=== PATIENT | male | born 1965 | race African-American/Black ===

== ENCOUNTER 2018-03-06 16:31 | Inpatient (IN) | payer BC, MEDICAID ==
[~2018-03-06] VITALS: Ht 177.8 cm; Wt 97.7 kg
[~2018-03-06 16:31] MED LIST: ASPI325T95 PO; BENA10TA4 PO; CALC0.255 PO; CALCUIM; CARV12.598 PO; DILT-9 PO; GLIP5TAB25 PO; HYDR-762 PO; MYCO500T PO; NEXUIM; PRED10TA PO; SIMV20TA PO; TACR1CAP26 PO; TAMS-14 PO; ZOLP10TA PO
[2018-03-06] MEDS ORDERED: CEFEPIME 2GM/50 ML (PMX) 50 ML IVPB STA (16:54)
[2018-03-06] MEDS ORDERED: morphine 4 MG/ML VIAL IV STA (16:54)
[2018-03-06] MEDS ORDERED: ACETAMINOPHEN 325 MG TAB PO STA (16:54)
[2018-03-06] MEDS ORDERED: ONDANSETRON 4 MG INJ IV STA (16:54)
[2018-03-06] MEDS ORDERED: SODIUM CHLORIDE 0.9% 1L BAG IV* STA (16:54)
[2018-03-06] MEDS ORDERED: VANCOMYCIN 1 GM (PMX) 250 ML IVPB ONE (17:00)
--- NOTE | 2018-03-06 17:22 | ERD ---
ER Documentation Chief Complaint Chief Complaint fevers, chills, arm and leg pain-symptoms started yesterday HPI Pleasant 52-year-old gentleman history of renal transplant currently on immunosuppressive therapy presents with approximately 24-48 hours of symptoms that include generalized malaise, myalgia, chills and fever of 103. Patient was sent from clinic. He also describes a cough with congestion that is slightly productive. No dysuria urgency or frequency. The patient is making urine. No abdominal pain nausea vomiting or diarrhea. ROS All systems reviewed and are negative except as per history of present illness. Medications Home Meds Reported Medications Tamsulosin Hcl* (Tamsulosin Hcl*) 0.4 Mg Cap.er.24h, 0.8 MG PO HS, CAP 03/06/18 Ibuprofen* (Ibuprofen*) 800 Mg Tab, 800 MG PO Q6H PRN for PAIN, TAB 03/06/18 Pravastatin Sodium* (Pravastatin Sodium*) 40 Mg Tablet, 40 MG PO HS, TAB 03/06/18 Fenofibrate, Micronized (Fenofibrate) 134 Mg Capsule, 134 MG PO DAILY, CAP 03/06/18 Carvedilol* (Carvedilol*) 25 Mg Tablet, 25 MG PO BID, #60 TAB 03/06/18 Diltiazem Hcl* (Cartia XT*) 300 Mg Cap.sr.24h, 300 MG PO DAILY, #30 CAP 03/06/18 Prednisone* (Prednisone*) 5 Mg Tab, 5 MG PO DAILY, TAB 03/06/18 Allopurinol* (Allopurinol*) 100 Mg Tablet, 100 MG PO DAILY, TAB 03/06/18 Glipizide* (Glipizide ER*) 2.5 Mg Tab.er.24, 2.5 MG PO DAILY, TAB 03/06/18 Mycophenolate Mofetil* (Cellcept*) 250 Mg Capsule, 250 MG PO BID, CAP TAKE 2TAB-QAM AND 1TAB-QPM 03/06/18 Tacrolimus* (Tacrolimus*) 1 Mg Capsule, 2 MG PO Q12, CAP 03/06/18 Aspirin* (Aspirin* EC) 81 Mg Tablet.dr, 81 MG PO DAILY, TAB 03/06/18 Clopidogrel Bisulfate* (Clopidogrel Bisulfate*) 75 Mg Tablet, 75 MG PO DAILY, #30 TAB 03/06/18 Discontinued Reported Medications Zolpidem Tartrate* (Ambien*) 10 Mg Tablet, 10 MG PO HS PRN for INSOMNIA, TAB 01/01/14 Hydrocodone Bit-Acetaminophen* ([place]*) 10-325 Mg Tablet, 1 TAB PO Q6 PRN for PAIN, TAB 01/01/14 Prednisone (Prednisone) 10 Mg Tab, 5 MG PO DAILY, TAB 01/01/14 Glipizide* (Glipizide ER*) 5 Mg/Bottle Tab.osm.24, 5 MG PO DAILY, TAB 01/01/14 Aspirin/Calcium Carbonate/Mag (Aspirin Buffered) 325 Mg Tablet, 325 MG PO DAILY, TAB 01/01/14 Calcitriol* (Rocaltrol*) 0.25 Mcg Capsule, 0.25 MCG PO MWF, CAP 01/01/14 Benazepril Hcl* (Benazepril Hcl*) 10 Mg Tablet, 10 MG PO DAILY, TAB 01/01/14 Tamsulosin Hcl* (Flomax*) 0.4 Mg Cap.er.24h, 0.8 MG PO HS, CAP 01/01/14 Tacrolimus* (Prograf*) 1 Mg Capsule, 3 MG PO Q12, CAP 01/01/14 Carvedilol* (Coreg*) 12.5 Mg Tablet, 12.5 MG PO BID, TAB 01/01/14 [Calcuim] No Conflict Check, 500 BID 01/01/14 Diltiazem Hcl (DILTIAZEM 24HR ER) 120 Mg Cap.er.24h, 300 MG PO DAILY 01/01/14 Simvastatin* (Zocor*) 20 Mg Tablet, 20 MG PO HS, TAB 01/01/14 [Nexuim] No Conflict Check, 40 DAILY 01/01/14 Mycophenolate Mofetil* (Cellcept*) 500 Mg Tablet, 500 MG PO BID, TAB 01/01/14 Allergies Allergies: Coded Allergies: No Known Allergy (Unverified , 03/06/18) PMhx/Soc History of Surgery: Yes (RENAL TRANSPLANT 18 YEARS AGO) Anesthesia Reaction: No Hx Neurological Disorder: No Hx Respiratory Disorders: No Hx Cardiac Disorders: Yes (AFIB, CAD, CHF) Hx Psychiatric Problems: Yes (DEPRESSION) Hx Miscellaneous Medical Probl: No Hx Alcohol Use: Yes (FORMER DRINKER) Hx Substance Use: No Hx Tobacco Use: No Smoking Status: [facility] Family History: No diabetes Physical Exam Vitals Vital Signs Date Temp Pulse Resp B/P (MAP) Pulse Ox O2 O2 Flow FiO2 Time Delivery Rate 03/06/18 102.5 95 24 147/86 96 Nasal 2.0 18:32 (106) Cannula 03/06/18 91 20 155/85 96 Room Air 17:43 (108) 03/06/18 Nasal 2 17:35 Cannula 03/06/18 103.0 17:13 03/06/18 103.1 105 18 134/88 100 16:55 (103) Physical Exam General: Slightly uncomfortable but no distress Head: Normocephalic, atraumatic. Eyes: Pupils equally reactive, EOM intact ENT: Moist mucous membranes Neck: Supple, no lymphadenopathy Respiratory: Scant rales at the bases but clears with coughing, no distress Cardiovascular: RRR, no murmurs, rubs, or gallops Abdominal: Soft, non-tender, non-distended, no peritoneal signs : Deferred MSK: No edema, no unilateral swelling, 5/5 strength Neurologic: Alert and oriented, moving all extremities, normal speech, no focal weakness, no cerebellar signs, no meningismus Skin: No rash Psych: Normal mood Result Diagram: 03/06/18 1702 03/06/18 1702 Results 24 hrs Laboratory Tests Test 03/06/18 17:02 03/06/18 17:05 White Blood Count 3.1 10^3/ul Red Blood Count 4.23 10^6/ul Hemoglobin 12.2 g/dl Hematocrit 38.2 % Mean Corpuscular Volume 90.3 fl Mean Corpuscular Hemoglobin 28.8 pg Mean Corpuscular Hemoglobin Concent 31.9 g/dl Red Cell Distribution Width 13.4 % Platelet Count 173 10^3/UL Mean Platelet Volume 9.2 fl Immature Granulocytes % 0.300 % Neutrophils % % Lymphocytes % % Monocytes % % Eosinophils % % Basophils % % Nucleated Red Blood Cells % 0.0 /100WBC Immature Granulocytes # 0.010 10^3/ul Neutrophils # 10^3/ul Lymphocytes # 10^3/ul Monocytes # 10^3/ul Eosinophils # 10^3/ul Basophils # 10^3/ul Nucleated Red Blood Cells # 10^3/ul Prothrombin Time 13.0 Sec Prothrombin Time Ratio 1.0 INR International Normalized Ratio 0.97 Activated Partial Thromboplast Time 29.6 Sec Urine Color YELLOW Urine Clarity CLEAR Urine pH 5.0 Urine Specific [place] 1.013 Urine Ketones NEGATIVE mg/dL Urine Nitrite NEGATIVE mg/dL Urine Bilirubin NEGATIVE mg/dL Urine Urobilinogen NEGATIVE mg/dL Urine Leukocyte Esterase NEGATIVE [place]/ul Urine Microscopic RBC 2 /HPF Urine Microscopic WBC 1 /HPF Urine Bacteria FEW /HPF Urine Hemoglobin 1+ mg/dL Urine Glucose NEGATIVE mg/dL Urine Total Protein 2+ mg/dl Sodium Level 140 mmol/L Potassium Level 4.2 mmol/L Chloride Level 108 mmol/L Carbon Dioxide Level 22 mmol/L Anion Gap 10 Blood Urea Nitrogen 32 mg/dl Creatinine 3.77 mg/dl Est Glomerular Filtrat Rate mL/min 21 mL/min Glucose Level 116 mg/dl Calcium Level 9.3 mg/dl Total Bilirubin 0.2 mg/dl Direct Bilirubin 0.00 mg/dl Indirect Bilirubin 0.2 mg/dl Aspartate Amino Transf (AST/SGOT) 21 IU/L Alanine Aminotransferase (ALT/SGPT) 17 IU/L Alkaline Phosphatase 37 IU/L Troponin I 0.031 ng/ml Total Protein 7.1 g/dl Albumin 3.9 g/dl Globulin 3.20 g/dl Albumin/Globulin Ratio 1.21 POC Venous Lactate 0.9 mmol/L Current Medications Medications Dose Sig/Jesus Start Time Status Last (Trade) Ordered Route PRN Stop Time Admin Dose Reason Admin 650 mg ONCE STAT 03/06/18 DC 03/06/18 Acetaminophen PO 16:54 17:13 (Tylenol 03/06/18 16:57 Tab) Morphine 4 mg ONCE STAT 03/06/18 DC 03/06/18 Sulfate IV 16:54 17:14 (morphine) 03/06/18 16:57 Ondansetron 4 mg ONCE STAT 03/06/18 DC 03/06/18 HCl (Zofran IV 16:54 17:13 Inj) 03/06/18 16:57 Cefepime HCl 50 ml @ ONCE STAT 03/06/18 DC 03/06/18 100 mls/hr IVPB 16:54 17:12 03/06/18 17:23 Vancomycin 250 ml @ ONCE ONCE 03/06/18 03/06/18 HCl 125 mls/hr IVPB 17:00 17:30 03/06/18 18:59 Sodium 3,060 ml BOLUS OVER 2 03/06/18 DC 03/06/18 Chloride HOURS STAT 16:54 17:14 (NS) IV* 03/06/18 16:57 Ondansetron 4 mg BRIDGE ORDER 03/06/18 HCl (Zofran PRN IV 19:00 Inj) NAUSEA AND/OR 03/07/18 18:59 VOMITING 650 mg ER BRIDGE 03/06/18 Acetaminophen PRN PO MILD 19:00 (Tylenol PAIN(1-3)OR 03/07/18 18:59 Tab) ELEVATED TEMP Procedures/MDM EKG, MONITORS, & DIAGNOSTIC IMAGING: EKG: I reviewed and interpreted a 12-lead EKG. Rhythm: Normal sinus rhythm ST Changes: No contiguous ST segment elevations T waves: No contiguous T wave inversions Impression: No evidence of acute cardiac ischemia Chest x-ray: I reviewed and interpreted a 1 view of the chest Mediastinum: No enlargement Cardiac silhouette: No cardiomegaly Airspace: Clear lung mullen bilaterally without evidence of pneumothorax Bones: No evidence of fracture LAB INTERPRETATION: * Lactic acid reassuring less than 2 * Chemistry profile shows a creatinine of 3.77, verbally stated is the patient's baseline. Lactic 0.9, normal liver function profile, negative troponin MEDICAL DECISION MAKING: The patient presents with fever, flulike symptoms in the setting of immunosuppression therapy. The patient is at risk for serious bacterial infection. Sepsis screening will be initiated. Empiric antibiotics appropriate given cough and concern for pneumonia. Also consider influenza. Empiric Tamiflu would also be appropriate given the patient's risk profile. Low threshold for hospitalization. Patient exhibits no signs or symptoms concerning for intra-abdominal process. ER COURSE: * Antipyretics provided. 30 cc/kg bolus of saline provided. Blood cultures prior to broad-spectrum antibiotics, vancomycin and cefepime provided. * Tamiflu initiated * The patient does have renal insufficiency but it appears to be consistent with his known baseline. Fluid resuscitation appropriate. Symptoms are imp roving. Temperature improving. * The patient has been treated for possible community acquired pneumonia in the setting of immunosuppression. Also consider viral process. CONSULTATION: None DISPOSITION PLAN: Accepting care team and consultations: I discussed the current laboratory data, diagnostic imaging and emergency care provided. Admitting team: Dr. Wright Admitting team indication: Insurance directed Sepsis Documentation: Patient's infectious symptoms have not stabilized and the patient is at risk of rapid decompensation. The patient will be admitted for careful hydration, antibiotic therapy, and infectious source control. SEVERE SEPSIS CRITERIA: Infectious source: Community-acquired pneumonia End organ damage indicated by: Creatinine is elevated but at baseline., No evidence of organ dysfunction SEPSIS MANAGEMENT Time of recognition of sepsis: Upon MD assessment. Time of recognition of severe sepsis: No severe sepsis at this time. Time of recognition of septic shock: No septic shock at this time. 3 HOUR BUNDLE Blood cultures x 2 before broad-spectrum antibiotics: Yes 30 ml/kg NS bolus completed Initial lactate less than 1 Repeat lactate pending repeat SEPTIC SHOCK ASSESSMENT: No lactic acid > 4.0 No persistent hypotension (SBP < 90 or 40 mmHg drop, MAP < 65) despite 30 mL/kg IV fluid bolus VOLUME REASSESSMENT FOR SEPTIC SHOCK: The patient does not meet criteria for septic shock in the emergency department at this time PERSISTENT HYPOTENSION TREATMENT: Comfort care no Central line not Required Vasopressor started not required I considered further perfusion assessment with CVP measurement, SCVO2, bedside ultrasound volume assessment, passive leg raise, trial of further fluid bolus. And proceeded with 30 ml/kg fluid bolus of NSS, broad spectrum antibiotics, and admission. CRITICAL CARE Critical care time 30 minutes Emergent fluid management while maintaining close respiratory support. Provision of immediate and broad-spectrum antibiotic therapy. Simultaneous assessment for possible sources in order to direct targeted therapy. Consid eration for invasive and chemical support to prevent cardiopulmonary collapse. Critical care time is independent of procedures performed. Departure Diagnosis: Primary Impression: Community acquired pneumonia Laterality: unspecified laterality Qualified Codes: J18.9 - Pneumonia, unspecified organism Additional Impressions: Influenza-like symptoms Chronic renal insufficiency Chronic kidney disease stage: unspecified stage Qualified Codes: N18.9 - Chronic kidney disease, unspecified Sepsis Sepsis type: sepsis due to unspecified organism Qualified Codes: A41.9 - Sepsis, unspecified organism History of renal transplant Condition: PARAM Lopez MD Mar 06, 2018 17:21
[2018-03-06] MEDS ORDERED: CLOP75TA19 PO (17:36)
[2018-03-06] MEDS ORDERED: TACR1CAP PO (17:36)
[2018-03-06] MEDS ORDERED: ASPI-817 PO (17:36)
[2018-03-06] MEDS ORDERED: MYCO250C3 PO (17:37)
[2018-03-06] MEDS ORDERED: GLIP2.5T3 PO (17:38)
[2018-03-06] MEDS ORDERED: ALLO100T PO (17:38)
[2018-03-06] MEDS ORDERED: DILT300C33 PO (17:39)
[2018-03-06] MEDS ORDERED: PRED5TAB PO (17:39)
[2018-03-06] MEDS ORDERED: FENO134C PO (17:40)
[2018-03-06] MEDS ORDERED: CARV25TA79 PO (17:40)
[2018-03-06] MEDS ORDERED: IBUP-1545 PO (17:41)
[2018-03-06] MEDS ORDERED: PRAV40TA76 PO (17:41)
[2018-03-06] MEDS ORDERED: TAMS0.4C2 PO (17:42)
[2018-03-06] MEDS ORDERED: ONDANSETRON 4 MG INJ IV PRN (19:00)
[2018-03-06] MEDS ORDERED: ACETAMINOPHEN 325 MG TAB PO PRN (19:00)
[2018-03-06 23:30] VITALS: Ht 177.8 cm; Wt 97.7 kg
[2018-03-07] MEDS ORDERED: GUAIFENESIN 20 MG/ML 5ML CUP PO PRN
[2018-03-07 00:09] VITALS: BP 160/87; PULSE 70; RESP 20
--- NOTE | 2018-03-07 00:17 | HP ---
Date/Time of Note Date/Time of Note DATE: 03/07/18 TIME: 00:17 Assessment/Plan VTE Prophylaxis Pharmacological prophylaxis: heparin Lines/Catheters IV Catheter Type (from Nrsg): Saline Lock Assessment/Plan Assessment/Plan Shortness of breath likely secondary to acute bronchitis -Transitioning IV antibiotic to oral today -Continue with duo nebs -Patient doing well however due to immunocompromised status, will monitor 1 more day in the inpatient setting History of kidney transplant -On CellCept at home, DC'd for now per nephrology Leukopenia -CellCept has been discontinued per nephrology due to worrisome low white count -It has been recommended by new accounts banking representative that patient follow-up with his outpatient new accounts banking representative as well as a muffler mechanic in order to determine if he can continue CellCept at a reasonable rate -We will need to the speak with new accounts banking representative before discharge to determine if patient will go home with no CellCept versus a lower dose Chronic kidney disease -Nephrology on board Hypertension -Continue home meds Dyslipidemia -Continue home meds BPH -Continue home meds Questionable diabetes mellitus -Insulin sliding scale as needed Result Diagram: 03/06/18 1702 03/06/18 1702 Results 24hrs Laboratory Tests Test 03/06/18 17:02 03/06/18 17:05 03/06/18 21:50 White Blood Count 3.1 L Red Blood Count 4.23 L Hemoglobin 12.2 L Hematocrit 38.2 L Mean Corpuscular Volume 90.3 Mean Corpuscular Hemoglobin 28.8 L Mean Corpuscular Hemoglobin Concent 31.9 L Red Cell Distribution Width 13.4 Platelet Count 173 Mean Platelet Volume 9.2 Immature Granulocytes % 0.300 Neutrophils % Segmented Neutrophils % (Manual) 71 Lymphocytes % Lymphocytes % (Manual) 16 Monocytes % Monocytes % (Manual) 12 H Eosinophils % Basophils % Basophils % (Manual) 1 Nucleated Red Blood Cells % 0.0 Immature Granulocytes # 0.010 Neutrophils # Lymphocytes (Manual) 0.4 L Lymphocytes # Monocytes # Monocytes # (Manual) 0.3 Eosinophils # Basophils # Basophils # (Manual) 0.0 Nucleated Red Blood Cells # Platelet Morphology Comment @See below Prothrombin Time 13.0 Prothrombin Time Ratio 1.0 INR International Normalized Ratio 0.97 Activated Partial Thromboplast Time 29.6 Urine Color YELLOW Urine Clarity CLEAR Urine pH 5.0 Urine Specific [place] 1.013 Urine Ketones NEGATIVE Urine Nitrite NEGATIVE Urine Bilirubin NEGATIVE Urine Urobilinogen NEGATIVE Urine Leukocyte Esterase NEGATIVE Urine Microscopic RBC 2 Urine Microscopic WBC 1 Urine Bacteria FEW A Urine Hemoglobin 1+ H Urine Glucose NEGATIVE Urine Total Protein 2+ H Sodium Level 140 Potassium Level 4.2 Chloride Level 108 Carbon Dioxide Level 22 Anion Gap 10 Blood Urea Nitrogen 32 H Creatinine 3.77 H Est Glomerular Filtrat Rate mL/min 21 L Glucose Level 116 Calcium Level 9.3 Total Bilirubin 0.2 Direct Bilirubin 0.00 Indirect Bilirubin 0.2 Aspartate Amino Transf (AST/SGOT) 21 Alanine Aminotransferase (ALT/SGPT) 17 Alkaline Phosphatase 37 L Troponin I 0.031 Total Protein 7.1 Albumin 3.9 Globulin 3.20 Albumin/Globulin Ratio 1.21 POC Venous Lactate 0.9 Lactic Acid Level 0.8 HPI/ROS Admit Date/Time Admit Date/Time Mar 06, 2018 at 18:44 Hx of Present Illness This is a 52-year-old male with a history of hypertension, diabetes, CAD, CHF, depression, dyslipidemia, gout renal transplant in 1997, CKD. Patient presented to ER complaining of cough, sore throat, generalized body ache. He said he was seen by his PCP and influenza was negative. He was sent to the ER for further evaluation. When he presented to ER, he was febrile with a temperature of 103. Influenza A & B were negative. Chest x-ray without acute findings. UA negative for UTI. His creatinine is 3.77, which patient states is his baseline. According to the patient, his kidney failed requiring renal transplant from uncontrolled hypertension. PMH/Family/Social Past Medical History Medical History: other (See HPI) Medications Current Medications Ondansetron HCl (Zofran Inj) 4 mg BRIDGE ORDER PRN IV NAUSEA AND/OR VOMITING; Start 03/06/18 at 19:00; Stop 03/07/18 at 18:59 Acetaminophen (Tylenol Tab) 650 mg ER BRIDGE PRN PO MILD PAIN(1-3)OR ELEVATED TEMP Last administered on 03/06/18at 22:57; Admin Dose 650 MG; Start 03/06/18 at 19:00; Stop 03/07/18 at 18:59 Guaifenesin (Robitussin Liquid Cup) 200 mg Q4H PRN PO COUGH Last administered on 03/07/18at 00:08; Admin Dose 200 MG; Start 03/07/18 at 00:00 Mycophenolate Mofetil (Cellcept) 250 mg BID PO ; Start 03/07/18 at 00:00 Tamsulosin HCl (Flomax) 0.8 mg HS PO ; Start 03/07/18 at 21:00 Tacrolimus (Prograf) 2 mg Q12 PO ; Start 03/07/18 at 00:30 IV Flush (NS 3 ml) 3 ml PER PROTOCOL IV ; Start 03/07/18 at 00:30; Status UNV Ondansetron HCl (Zofran Inj) 4 mg Q6H PRN IV NAUSEA AND/OR VOMITING; Start 03/07/18 at 00:30; Status UNV Acetaminophen (Tylenol Tab) 650 mg Q6H PRN PO PAIN LEVEL 1-3 OR FEVER; Start 03/07/18 at 00:30; Status UNV Acetaminophen/ Hydrocodone Bitart (Pep (5/325)) 1 tab Q6H PRN PO PAIN LEVEL 4-6; Start 03/07/18 at 00:30; Status UNV Allopurinol (Zyloprim) 100 mg DAILY PO ; Start 03/07/18 at 09:00; Status UNV Aspirin (Halfprin) 81 mg DAILY PO ; Start 03/07/18 at 09:00; Status UNV Carvedilol (Coreg) 25 mg BID PO ; Start 03/07/18 at 09:00; Status UNV Clopidogrel Bisulfate (plaVIX) 75 mg DAILY PO ; Start 03/07/18 at 09:00; Status UNV Diltiazem HCl (Cardizem Cd) 300 mg DAILY PO ; Start 03/07/18 at 09:00; Status UNV Prednisone (Prednisone) 5 mg DAILY PO ; Start 03/07/18 at 09:00; Status UNV Miscellaneous Information 134 mg DAILY PO ; Start 03/07/18 at 09:00; Status UNV Miscellaneous Information 40 mg HS PO ; Start 03/07/18 at 21:00; Status UNV Coded Allergies: No Known Allergy (Unverified , 03/06/18) Past Surgical History Past Surgical Hx: other (See HPI) Family History Significant Family History: no pertinent family hx Social History Alcohol Use: none Smoking Status: Unknown if ever smoked Drug Use: none Exam/Review of Systems Vital Signs Vitals Vital Signs Date Temp Pulse Resp B/P (MAP) Pulse Ox O2 O2 Flow FiO2 Time Delivery Rate 03/07/18 101.7 70 20 160/87 98 00:09 (111) 03/06/18 Room Air 22:59 Nasal Cannula 03/06/18 2.0 19:13 Exam Constitutional: other (No acute distress, but was having dry cough intermittently) Head: normocephalic, atraumatic Eyes: EOMI, PERRL Respiratory: clear to auscultation, normal air movement Cardiovascular: regular rate and rhythm, nl pulses Gastrointestinal: soft, non-tender Extremities: normal pulses JACKIE VERNON MD Mar 07, 2018 00:17
[2018-03-07] MEDS ORDERED: GLUCOSE GEL 15 GRAM TUBE BUCCAL PRN (00:30)
[2018-03-07] MEDS ORDERED: DEXTROSE 50% 50 ML SYRINGE IV PRN ×2 (00:30)
[2018-03-07] MEDS ORDERED: NACL 0.9% 3 ML SYG IV SCH (00:30)
[2018-03-07] MEDS ORDERED: ONDANSETRON 4 MG INJ IV PRN (00:30)
[2018-03-07] MEDS ORDERED: GLUCAGON 1 MG INJ IM PRN (00:30)
[2018-03-07] MEDS ORDERED: GLUCOSE GEL 15 GRAM TUBE PO PRN ×2 (00:30)
[2018-03-07] MEDS ORDERED: HYDROCODONE/APAP (5/325) TAB PO PRN (00:30)
[2018-03-07] MEDS: TACROLIMUS 1 MG CAP PO SCH ×3 (00:54→20:29)
[2018-03-07] MEDS: ACCU-CHEK XX SCH (02:00)
[2018-03-07] MEDS: ACETAMINOPHEN 325 MG TAB PO PRN (02:31)
[2018-03-07] MEDS ORDERED: CEPASTAT LOZENGE MT PRN (07:00)
[2018-03-07 07:07] VITALS: BP 152/78; PULSE 76; RESP 20
[2018-03-07] MEDS: INSULIN ASPART [NOVOLOG] 3 ML PEN SC SCH ×4 (07:49→20:44)
[2018-03-07] MEDS: CLOPIDOGREL 75 MG TAB PO SCH (08:42)
[2018-03-07] MEDS: ALLOPURINOL 100 MG TAB PO SCH (08:43)
[2018-03-07] MEDS: predniSONE 5 MG TAB PO SCH (08:43)
[2018-03-07] MEDS: DILTIAZEM (CD) 300 MG CAP PO SCH (08:43)
[2018-03-07] MEDS: ASPIRIN (EC) 81 MG TAB PO SCH (08:43)
[2018-03-07] MEDS ORDERED: MYCOPHENOLATE 250 MG CAP PO SCH ×4 (09:00→21:00)
[2018-03-07] MEDS ORDERED: TACROLIMUS 1 MG CAP PO SCH (09:00)
[2018-03-07] MEDS ORDERED: NON-FORMULARY/PATIENT OWN MED (Fenofibrate, Micronized (Fenofibrate) 134 MG) PO SCH (09:00)
[2018-03-07] MEDS ORDERED: MAGNESIUM SULFATE 2 GM/50 ML 50 ML IVPB ONE (10:00)
--- NOTE | 2018-03-07 10:58 | CONS ---
DATE OF ADMISSION: 03/06/2018 DATE OF CONSULTATION: TYPE OF CONSULTATION: Renal. Thank you, Dr. Miller, for asking me to participate in medical management of this patient. REASON FOR CONSULTATION: Chronic kidney disease and history of cadaveric kidney transplant. HISTORY OF PRESENT ILLNESS: This 52-year-old man was admitted yesterday because of cough, fever, muscle aches, nausea. He was thought to have a viral infection. He had tests for influenza A and B which were negative. His chest x-ray was clear. He has had some nausea but no vomiting. He has myalgias and some leg weakness. The patient has a history of chronic kidney disease. He said that he had uncontrolled hypertension with subsequent kidney disease and then kidney failure. He required hemodialysis from 1994 to 1997. He was able to have cadaveric kidney transplant done at [facility]. The patient says that his serum creatinine recently runs about 3.7. His serum creatinine yesterday on admission was 3.77. Today it is 3.35. The patient takes immunosuppressive medication. He is seen by a solar field service technician in [place], but he does not know his name. PAST MEDICAL HISTORY: Remarkable for hypertension, coronary artery disease, chronic kidney disease, kidney transplant, atrial fibrillation, history of congestive heart failure, depression. SOCIAL HISTORY: He is a smoker and smokes every day. He was a former alcohol drinker. CURRENT MEDICATIONS: Include the followin. Tamsulosin 0.4 mg a day. 2. Ibuprofen 800 mg q. 6 hours for pain. 3. Pravastatin 40 mg a day. 4. Fenofibrate 134 mg a day. 5. Carvedilol 25 mg twice a day. 6. Diltiazem 300 mg a day. 7. Prednisone 5 mg a day. 8. Allopurinol 100 mg a day. 9. Glipizide 2.5 mg a day. 10. CellCept 500 mg in the morning and 250 at night. 11. Tacrolimus 2 mg q.12h. 12. Aspirin 81 mg a day. 13. Plavix 75 mg a day. 14. Ambien 10 mg at bedtime. PHYSICAL EXAMINATION: GENERAL: At this time reveals a well-developed man in no apparent distress. VITAL SIGNS: Temperature 100.2, pulse is 76, respirations 20, blood pressure 152/78, O2 saturation 94% on room air. HEENT: Head normocephalic. Eyes: Extraocular muscles intact. NOSE AND MOUTH: Normal. NECK: Supple. No neck vein distention. LUNGS: Clear to auscultation. HEART: Regular rhythm. No murmurs, gallops or rubs. ABDOMEN: Soft, nontender, no masses or megaly. EXTREMITIES: No peripheral edema. He does have a right forearm AV fistula which has a good thrill over the vein. LABORATORY DATA: Today sodium 137, potassium 4.1, chloride 107, CO2 21, BUN 29, creatinine 3.35, glucose of 101, magnesium 1.3. White blood count 2500, hemoglobin 11.6, hematocrit 36.1. Urinalysis negative leukocyte esterase, 2+ protein. IMPRESSION: 1. Chronic kidney disease. He had a Kidney transplant in 1997 . Prior to that he was on dialysis for 3 years. He had kidney disease due to HTN . He is followed by a solar field service technician in [place]. The patient says that his baseline serum creatinine is around 3.7. This is about what his serum creatinine is now. I would continue his current immunosuppressive medication for now. I am concerned about leukopenia. I suspect that he has some component of chronic transplant nephropathy and this is the cause of his current decreased renal function. 2. Leukopenia. This could be due to CellCept and his dose may need to be adjusted down. I did discuss this with the patient. 3. Proteinuria. 4. Febrile illness. Probably some viral illness. His chest x-ray does not show pneumonia. Influenza seems to be ruled out. 5. Hypertension. PLAN: 1. I will order ultrasound of transplanted kidney. 2. Monitor renal function and other laboratory tests including white blood count. 3. Check urine protein creatinine ratio. 4. I will follow the patient along with you. Dictated By: PARAM KING MD, ND/BECKY Conf#: [id number] DID#: [id number] CC: PADMINI SR MD; JACKIE VERNON MD;*EndCC* MTDD
[2018-03-07] MEDS: FENOFIBRATE 145 MG TAB PO SCH (11:11)
[2018-03-07] MEDS: MYCOPHENOLATE 250 MG CAP PO SCH (11:11)
[2018-03-07 11:46] VITALS: BP 135/65; PULSE 74; RESP 20
[2018-03-07 15:29] VITALS: BP 139/82; PULSE 68; RESP 20
--- NOTE | 2018-03-07 15:46 | PN ---
Date/Time of Note Date/Time of Note DATE: 03/07/18 TIME: 15:38 Assessment/Plan VTE Prophylaxis Risk score (from Ns)>0 risk: 1 SCD applied (from Ns): Yes Pharmacological prophylaxis: NA/contraindicated Pharm contraindication: low risk/ambulating Lines/Catheters IV [facility] (from [facility] Saline Lock Urinary Cath still in place: No Assessment/Plan Assessment/Plan 1. Acute bronchitis, rocephin and zithromax 2. s/p kidney transplant, on cellcept, prograft and prednisone 3. CKD, follow up with nephrology 4. DM by history, HbA1c 5.8, diet control 5. HTN, controlled 6. ?CAD, states he had LHC but no coronary artery disease 7. CHF, stable 8. Dyslipidemia, on lipitor and tricor 9. BPH, on flomax 10. DVT prophylaxis: SCDs Result Diagram: 03/07/18 0611 03/07/18 0611 Results 24hrs Laboratory Tests Test 03/06/18 17:02 03/06/18 17:05 03/06/18 21:50 03/07/18 06:11 White Blood Count 3.1 L 2.5 L Red Blood Count 4.23 L 3.96 L Hemoglobin 12.2 L 11.6 L Hematocrit 38.2 L 36.1 L Mean Corpuscular 90.3 91.2 Volume Mean Corpuscular 28.8 L 29.3 Hemoglobin Mean Corpuscular 31.9 L 32.1 Hemoglobin Concent Red Cell 13.4 13.6 Distribution Width Platelet Count 173 139 L Mean Platelet Volume 9.2 9.1 Immature 0.300 0.000 L Granulocytes % Neutrophils % 53.1 Segmented 71 Neutrophils % (Manual) Lymphocytes % 30.2 Lymphocytes % 16 (Manual) Monocytes % 15.1 H Monocytes % (Manual) 12 H Eosinophils % 1.2 Basophils % 0.4 Basophils % (Manual) 1 Nucleated Red Blood 0.0 0.0 Cells % Immature 0.010 0.000 Granulocytes # Neutrophils # 1.3 L Lymphocytes (Manual) 0.4 L Lymphocytes # 0.7 L Monocytes # 0.4 Monocytes # (Manual) 0.3 Eosinophils # 0.0 Basophils # 0.0 Basophils # (Manual) 0.0 Nucleated Red Blood 0.0 Cells # Platelet Morphology @See below Comment Prothrombin Time 13.0 Prothrombin Time 1.0 Ratio INR International 0.97 Normalized Ratio Activated 29.6 Partial Thromboplast Time Urine Color YELLOW Urine Clarity CLEAR Urine pH 5.0 Urine Specific 1.013 [place] Urine Ketones NEGATIVE Urine Nitrite NEGATIVE Urine Bilirubin NEGATIVE Urine Urobilinogen NEGATIVE Urine Leukocyte NEGATIVE Esterase Urine Microscopic 2 RBC Urine Microscopic 1 WBC Urine Bacteria FEW A Urine Hemoglobin 1+ H Urine Glucose NEGATIVE Urine Total Protein 2+ H Sodium Level 140 137 Potassium Level 4.2 4.1 Chloride Level 108 107 Carbon Dioxide Level 22 21 Anion Gap 10 9 Blood Urea Nitrogen 32 H 29 H Creatinine 3.77 H 3.35 H Est Glomerular 21 L 24 L Filtrat Rate mL/min Glucose Level 116 101 Calcium Level 9.3 8.7 Total Bilirubin 0.2 0.2 Direct Bilirubin 0.00 0.00 Indirect Bilirubin 0.2 0.2 Aspartate Amino 21 21 Transf (AST/SGOT) Alanine 17 16 Aminotransferase (AL T/SGPT) Alkaline Phosphatase 37 L 31 L Troponin I 0.031 Total Protein 7.1 6.4 Albumin 3.9 3.5 Globulin 3.20 2.90 Albumin/Globulin 1.21 1.20 Ratio POC Venous Lactate 0.9 Lactic Acid Level 0.8 Hemoglobin A1c 5.8 Magnesium Level 1.3 L Triglycerides Level 101 Cholesterol Level 102 LDL Cholesterol, 45 Calculated HDL Cholesterol 37 Cholesterol/HDL 2.7 Ratio Test 03/07/18 07:47 03/07/18 12:01 Bedside Glucose 103 138 Subjective 24 Hr Interval Summary Free Text/Dictation still cough, no sputum Exam/Review of Systems Vital Signs Vitals Vital Signs Date Temp Pulse Resp B/P (MAP) Pulse Ox O2 O2 Flow FiO2 Time Delivery Rate 03/07/18 99.5 68 20 139/82 97 Room Air 15:29 (101) 03/06/18 2.0 19:13 Intake and Output 03/06/18 03/06/18 03/07/18 1515:00 23:00 07:00 IntakeIntake Total 800 ml BalanceBalance 800 ml Exam Constitutional: alert, oriented, well developed Psych: no complaints, nl mood/affect Head: normocephalic, atraumatic Eyes: nl conjunctiva, EOMI, nl lids ENMT: nl external ears & nose, nl lips & teeth, nl nasal mucosa & septum Neck: supple, non-tender Respiratory: clear to auscultation, normal air movement; No congested cough, No crackles/rales, No diminished breath sounds, No intercostal retraction, No labored breathing, No respirations, No tactile fremitus, No wheezing, No other Cardiovascular: regular rate and rhythm, nl pulses; No bruits, No diastolic murmur, No edema, No gallop, No irregular rhythm, No jugular venous distention (JVD), No murmurs/extra sounds, No rub, No systolic murmur, No S3, No S4, No other Gastrointestinal: soft, nl liver, spleen, non-tender Musculoskeletal: nl extremities to inspection, nl gait and stance; No joint tenderness, No muscle tone, No muscle weakness, No range of motion, No spine non-tender, No swelling, No other Extremities: normal pulses; No calf tenderness, No cyanosis, No clubbing, No edema, No pitting pedal edema, No palpable cord, No tenderness, No other Neurological: MARKETING LIAISON II-XII intact, nl mental status, nl speech, nl strength Medications Medications Current Medications Guaifenesin (Robitussin Liquid Cup) 200 mg Q4H PRN PO COUGH Last administered on 03/07/18at 00:08; Admin Dose 200 MG; Start 03/07/18 at 00:00 Tamsulosin HCl (Flomax) 0.8 mg HS PO ; Start 03/07/18 at 21:00 Tacrolimus (Prograf) 2 mg Q12 PO Last administered on 03/07/18at 11:10; Admin Dose 2 MG; Start 03/07/18 at 00:30 IV Flush (NS 3 ml) 3 ml PER PROTOCOL IV ; Start 03/07/18 at 00:30 Ondansetron HCl (Zofran Inj) 4 mg Q6H PRN IV NAUSEA AND/OR VOMITING; Start 03/07/18 at 00:30 Acetaminophen (Tylenol Tab) 650 mg Q6H PRN PO PAIN LEVEL 1-3 OR FEVER Last administered on 03/07/18at 02:31; Admin Dose 650 MG; Start 03/07/18 at 00:30 Acetaminophen/ Hydrocodone Bitart ([place] (5/325)) 1 tab Q6H PRN PO PAIN LEVEL 4-6 Last administered on 03/07/18at 07:25; Admin Dose 1 TAB; Start 03/07/18 at 00:30 Allopurinol (Zyloprim) 100 mg DAILY PO Last administered on 03/07/18at 08:43; Admin Dose 100 MG; Start 03/07/18 at 09:00 Aspirin (Halfprin) 81 mg DAILY PO Last administered on 03/07/18at 08:43; Admin Dose 81 MG; Start 03/07/18 at 09:00 Carvedilol (Coreg) 25 mg BID PO Last administered on 03/07/18at 08:41; Admin Dose 25 MG; Start 03/07/18 at 09:00 Clopidogrel Bisulfate (plaVIX) 75 mg DAILY PO Last administered on 03/07/18at 08:42; Admin Dose 75 MG; Start 03/07/18 at 09:00 Diltiazem HCl (Cardizem Cd) 300 mg DAILY PO Last administered on 03/07/18at 08:43; Admin Dose 300 MG; Start 03/07/18 at 09:00 Prednisone (Prednisone) 5 mg DAILY PO Last administered on 03/07/18at 08:43; Admin Dose 5 MG; Start 03/07/18 at 09:00 Diagnostic Test (Pha) (Accu-Chek) 1 ea 02 XX ; Start 03/07/18 at 02:00 Insulin Aspart (Novolog Insulin Pen) NOVOLOG *MILD* ALGORITHM WITH MEALS BEDTIME SC ; Start 03/07/18 at 07:55 Miscellaneous Information 1 ea NOTE XX ; Start 03/07/18 at 00:30 Glucose (Glutose) 15 gm Q15M PRN PO DECREASED GLUCOSE; Start 03/07/18 at 00:30 Glucose (Glutose) 22.5 gm Q15M PRN PO DECREASED GLUCOSE; Start 03/07/18 at 0 0:30 Dextrose (D50w Syringe) 25 ml Q15M PRN IV DECREASED GLUCOSE; Start 03/07/18 at 00:30 Dextrose (D50w Syringe) 50 ml Q15M PRN IV DECREASED GLUCOSE; Start 03/07/18 at 00:30 Glucagon (Glucagen) 1 mg Q15M PRN IM DECREASED GLUCOSE; Start 03/07/18 at 00:30 Glucose (Glutose) 15 gm Q15M PRN BUCCAL DECREASED GLUCOSE; Start 03/07/18 at 00:30 Influenza Virus Vaccine Quadrival (Fluzone) 0.5 ml ONCE ONCE IM* ; Start 03/08/18 at 10:00; Stop 03/08/18 at 10:01 Phenol (Cepastat Lozenge) 1 lozenge Q1H PRN MT throat pain; Start 03/07/18 at 07:00 Mycophenolate Mofetil (Cellcept) 250 mg QHS PO ; Start 03/07/18 at 21:00 Atorvastatin Calcium (Lipitor) 10 mg DAILY@21 PO ; Start 03/07/18 at 21:00 Fenofibrate (Tricor) 145 mg DAILY PO Last administered on 03/07/18at 11:11; Admin Dose 145 MG; Start 03/07/18 at 11:00 Mycophenolate Mofetil (Cellcept) 500 mg QAM PO Last administered on 03/07/18at 11:11; Admin Dose 500 MG; Start 03/07/18 at 11:30 PADMINI SR MD Mar 07, 2018 15:46
[2018-03-07] MEDS ORDERED: AZITHROMYCIN 500MG/NS (PMX) 250 ML IVPB SCH (16:00)
[2018-03-07] MEDS: CEFTRIAXONE 1 GM/50 ML (PMX) 50 ML IVPB SCH (17:02)
[2018-03-07] MEDS: AZITHROMYCIN 500MG/NS (PMX) 250 ML IVPB SCH (17:41)
[2018-03-07 20:00] VITALS: BP 128/78; PULSE 67; RESP 19
[2018-03-07] MEDS: TAMSULOSIN (SR) 0.4 MG CAP PO SCH (20:29)
[2018-03-07] MEDS: ATORVASTATIN 10 MG TAB PO SCH (20:30)
[2018-03-07] MEDS ORDERED: NON-FORMULARY/PATIENT OWN MED (Pravastatin Sodium* 40 MG) PO SCH (21:00)
[2018-03-07] MEDS ORDERED: ZOLPIDEM 5 MG TAB PO ONE (21:00)
[2018-03-08] VITALS: BP 143/79; PULSE 67; RESP 22
[2018-03-08] MEDS: ACCU-CHEK XX SCH ×2 (02:00→21:26)
[2018-03-08 04:00] VITALS: BP 144/79; PULSE 74; RESP 20
[2018-03-08 06:27] VITALS: BP 137/81; PULSE 82; RESP 18
[2018-03-08 07:53] VITALS: BP 146/77; PULSE 78; RESP 20
[2018-03-08] MEDS: INSULIN ASPART [NOVOLOG] 3 ML PEN SC SCH ×4 (08:50→21:00)
[2018-03-08] MEDS ORDERED: MYCOPHENOLATE 250 MG CAP PO SCH (09:00)
--- NOTE | 2018-03-08 09:29 | CONS ---
Date/Time of Note Date/Time of Note DATE: 03/08/18 TIME: 09:21 Assessment/Plan Assessment/Plan Hospital Course 1. 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 His renal function is improved today. 2. Leukopenia. I am concerned about his low white blood count. I suspect this could be due to myelosuppression from CellCept. He should see a final assembly worker to try and determine the cause of the leukopenia. For now I will decrease the CellCept dose. I did explain this to the patient . I told him that he should decrease his CellCept dose by not taking the 250 mg at night. He will continue the 500 mg in the morning. 3. Viral illness, not influenza. 4. Anemia 5. Hypertension 6. Hyperlipidemia 7. Coronary artery disease Result Diagram: 03/08/18 0534 03/08/18 0534 Results 24hrs Laboratory Tests Test 03/07/18 12:01 03/07/18 17:40 03/07/18 20:28 03/08/18 02:26 Bedside Glucose 138 144 182 107 Test 03/08/18 05:34 03/08/18 08:42 White Blood Count 2.6 L Red Blood Count 4.07 L Hemoglobin 11.9 L Hematocrit 36.5 L Mean Corpuscular 89.7 Volume Mean Corpuscular 29.2 Hemoglobin Mean Corpuscular 32.6 Hemoglobin Concent Red Cell 13.2 Distribution Width Platelet Count 154 Mean Platelet Volume 9.3 Immature 0.000 L Granulocytes % Neutrophils % 50.8 Lymphocytes % 33.8 Monocytes % 12.7 H Eosinophils % 2.3 Basophils % 0.4 Nucleated Red Blood 0.0 Cells % Immature 0.000 Granulocytes # Neutrophils # 1.3 L Lymphocytes # 0.9 Monocytes # 0.3 Eosinophils # 0.1 Basophils # 0.0 Nucleated Red Blood 0.0 Cells # Sodium Level 137 Potassium Level 3.8 Chloride Level 105 Carbon Dioxide Level 23 Anion Gap 9 Blood Urea Nitrogen 27 H Creatinine 3.15 H Est Glomerular 25 L Filtrat Rate mL/min Glucose Level 99 Calcium Level 8.9 Phosphorus Level 3.0 Magnesium Level 1.5 L Bedside Glucose 102 Consultation Date/Type/Reason Admit Date/Time Mar 06, 2018 at 18:44 Initial Consult Date 24 HR Interval Summary Free Text/Dictation This patient is being seen in nephrologic follow-up. He is awake. He says that he is feeling slightly better. He has less cough and less myalgias. Constitutional: improved Exam/Review of Systems Vital Signs Vitals Vital Signs Date Temp Pulse Resp B/P (MAP) Pulse Ox O2 O2 Flow FiO2 Time Delivery Rate 03/08/18 98.9 78 20 146/77 91 Room Air 07:53 (100) 03/06/18 2.0 19:13 Intake and Output 03/07/18 03/07/18 03/08/18 1515:00 23:00 07:00 IntakeIntake Total 50 ml 1800 ml OutputOutput Total 400 ml 350 ml BalanceBalance -350 ml 1450 ml Exam Constitutional: alert, oriented Respiratory: clear to auscultation, normal air movement Cardiovascular: regular rate and rhythm Gastrointestinal: soft Musculoskeletal: nl extremities to inspection Medications Medications Current Medications Guaifenesin (Robitussin Liquid Cup) 200 mg Q4H PRN PO COUGH Last administered on 03/07/18at 00:08; Admin Dose 200 MG; Start 03/07/18 at 00:00 Tamsulosin HCl (Flomax) 0.8 mg HS PO Last administered on 03/07/18at 20:29; Admin Dose 0.8 MG; Start 03/07/18 at 21:00 Tacrolimus (Prograf) 2 mg Q12 PO Last administered on 03/07/18at 20:29; Admin Dose 2 MG; Start 03/07/18 at 00:30 IV Flush (NS 3 ml) 3 ml PER PROTOCOL IV ; Start 03/07/18 at 00:30 Ondansetron HCl (Zofran Inj) 4 mg Q6H PRN IV NAUSEA AND/OR VOMITING; Start 03/07/18 at 00:30 Acetaminophen (Tylenol Tab) 650 mg Q6H PRN PO PAIN LEVEL 1-3 OR FEVER Last administered on 03/07/18at 02:31; Admin Dose 650 MG; Start 03/07/18 at 00:30 Acetaminophen/ Hydrocodone Bitart ([place] (5/325)) 1 tab Q6H PRN PO PAIN LEVEL 4-6 Last administered on 03/07/18at 07:25; Admin Dose 1 TAB; Start 03/07/18 at 00:30 Allopurinol (Zyloprim) 100 mg DAILY PO Last administered on 03/07/18at 08:43; Admin Dose 100 MG; Start 03/07/18 at 09:00 Aspirin (Halfprin) 81 mg DAILY PO Last administered on 03/07/18at 08:43; Admin Dose 81 MG; Start 03/07/18 at 09:00 Carvedilol (Coreg) 25 mg BID PO Last administered on 03/07/18at 20:30; Admin Dose 25 MG; Start 03/07/18 at 09:00 Clopidogrel Bisulfate (plaVIX) 75 mg DAILY PO Last administered on 03/07/18at 08:42; Admin Dose 75 MG; Start 03/07/18 at 09:00 Diltiazem HCl (Cardizem Cd) 300 mg DAILY PO Last administered on 03/07/18at 08:43; Admin Dose 300 MG; Start 03/07/18 at 09:00 Prednisone (Prednisone) 5 mg DAILY PO Last administered on 03/07/18at 08:43; Admin Dose 5 MG; Start 03/07/18 at 09:00 Diagnostic Test (Pha) (Accu-Chek) 1 ea 02 XX ; Start 03/07/18 at 02:00 Insulin Aspart (Novolog Insulin Pen) NOVOLOG *MILD* ALGORITHM WITH MEALS BEDTIME SC Last administered on 03/07/18at 20:44; Admin Dose 1 UNIT; Start 03/07/18 at 07:55 Miscellaneous Information 1 ea NOTE XX ; Start 03/07/18 at 00:30 Glucose (Glutose) 15 gm Q15M PRN PO DECREASED GLUCOSE; Start 03/07/18 at 00:30 Glucose (Glutose) 22.5 gm Q15M PRN PO DECREASED GLUCOSE; Start 03/07/18 at 00:30 Dextrose (D50w Syringe) 25 ml Q15M PRN IV DECREASED GLUCOSE; Start 03/07/18 at 00:30 Dextrose (D50w Syringe) 50 ml Q15M PRN IV DECREASED GLUCOSE; Start 03/07/18 at 00:30 Glucagon (Glucagen) 1 mg Q15M PRN IM DECREASED GLUCOSE; Start 03/07/18 at 00:30 Glucose (Glutose) 15 gm Q15M PRN BUCCAL DECREASED GLUCOSE; Start 03/07/18 at 00:30 Influenza Virus Vaccine Quadrival (Fluzone) 0.5 ml ONCE ONCE IM* ; Start 03/08/18 at 10:00; Stop 03/08/18 at 10:01 Phenol (Cepastat Lozenge) 1 lozenge Q1H PRN MT throat pain Last administered on 03/07/18 19:38; Admin Dose 1 LOZENGE; Start 03/07/18 at 07:00 Mycophenolate Mofetil (Cellcept) 250 mg QHS PO Last administered on 03/07/18 20:29; Admin Dose 250 MG; Start 03/07/18 at 21:00 Atorvastatin Calcium (Lipitor) 10 mg DAILY@21 PO Last administered on 03/07/18 20:30; Admin Dose 10 MG; Start 03/07/18 at 21:00 Fenofibrate (Tricor) 145 mg DAILY PO Last administered on 03/07/18 11:11; Admin Dose 145 MG; Start 03/07/18 at 11:00 Mycophenolate Mofetil (Cellcept) 500 mg QAM PO Last administered on 03/07/18 11:11; Admin Dose 500 MG; Start 03/07/18 at 11:30 Ceftriaxone Sodium 50 ml @ 100 mls/hr Q24H IVPB Last administered on 03/07/18at 17:02; Admin Dose 100 MLS/HR; Start 03/07/18 at 17:00 Azithromycin 250 ml @ 250 mls/hr Q24H IVPB Last administered on 03/07/18at 17:41; Admin Dose 250 MLS/HR; Start 03/07/18 at 17:30 PARAM KING MD Mar 08, 2018 09:29
[2018-03-08] MEDS: FENOFIBRATE 145 MG TAB PO SCH (09:59)
[2018-03-08] MEDS: predniSONE 5 MG TAB PO SCH (09:59)
[2018-03-08] MEDS: CLOPIDOGREL 75 MG TAB PO SCH (09:59)
[2018-03-08] MEDS: ASPIRIN (EC) 81 MG TAB PO SCH (09:59)
[2018-03-08] MEDS: ALLOPURINOL 100 MG TAB PO SCH (09:59)
[2018-03-08] MEDS: TACROLIMUS 1 MG CAP PO SCH ×2 (10:14→20:19)
[2018-03-08] MEDS: MYCOPHENOLATE 250 MG CAP PO SCH (10:23)
[2018-03-08] MEDS: DILTIAZEM (CD) 300 MG CAP PO SCH (10:23)
[2018-03-08 14:32] VITALS: BP 137/74; PULSE 78; RESP 18
--- NOTE | 2018-03-08 14:49 | PN ---
Date/Time of Note Date/Time of Note DATE: 03/08/18 TIME: 14:47 Assessment/Plan VTE Prophylaxis Risk score (from Ns)>0 risk: 1 SCD applied (from Ns): Yes Pharmacological prophylaxis: NA/contraindicated Pharm contraindication: low risk/ambulating Lines/Catheters IV Catheter Type (from Nrs): Saline Lock Urinary Cath still in place: No Assessment/Plan Assessment/Plan 1. Acute bronchitis, improving on rocephin and zithromax 2. s/p kidney transplant, on cellcept, prograft and prednisone 3. CKD, follow up with nephrology 4. DM by history, HbA1c 5.8, diet control 5. HTN, controlled 6. ?CAD, states he had LHC but no coronary artery disease 7. CHF, stable 8. Dyslipidemia, on lipitor and tricor 9. BPH, on flomax 10. DVT prophylaxis: SCDs 11. Hypomagnesemia, Mg Result Diagram: 03/08/18 0534 03/08/18 0534 Results 24hrs Laboratory Tests Test 03/07/18 17:40 03/07/18 20:28 03/08/18 02:26 03/08/18 05:34 Bedside Glucose 144 182 107 White Blood Count 2.6 L Red Blood Count 4.07 L Hemoglobin 11.9 L Hematocrit 36.5 L Mean Corpuscular 89.7 Volume Mean Corpuscular 29.2 Hemoglobin Mean Corpuscular 32.6 Hemoglobin Concent Red Cell 13.2 Distribution Width Platelet Count 154 Mean Platelet Volume 9.3 Immature 0.000 L Granulocytes % Neutrophils % 50.8 Lymphocytes % 33.8 Monocytes % 12.7 H Eosinophils % 2.3 Basophils % 0.4 Nucleated Red Blood 0.0 Cells % Immature 0.000 Granulocytes # Neutrophils # 1.3 L Lymphocytes # 0.9 Monocytes # 0.3 Eosinophils # 0.1 Basophils # 0.0 Nucleated Red Blood 0.0 Cells # Sodium Level 137 Potassium Level 3.8 Chloride Level 105 Carbon Dioxide Level 23 Anion Gap 9 Blood Urea Nitrogen 27 H Creatinine 3.15 H Est Glomerular 25 L Filtrat Rate mL/min Glucose Level 99 Calcium Level 8.9 Phosphorus Level 3.0 Magnesium Level 1.5 L Test 03/08/18 08:42 03/08/18 12:35 Bedside Glucose 102 140 Subjective 24 Hr Interval Summary Free Text/Dictation less cough, no sputum Exam/Review of Systems Vital Signs Vitals Vital Signs Date Temp Pulse Resp B/P (MAP) Pulse Ox O2 O2 Flow FiO2 Time Delivery Rate 03/08/18 99.2 78 18 137/74 95 Room Air 14:32 (95) 03/06/18 2.0 19:13 Intake and Output 03/07/18 03/07/18 03/08/18 1414:59 22:59 06:59 IntakeIntake Total 50 ml 1800 ml OutputOutput Total 400 ml 350 ml BalanceBalance -350 ml 1450 ml Exam Constitutional: alert, oriented, well developed Psych: no complaints, nl mood/affect Head: normocephalic, atraumatic Eyes: nl conjunctiva, EOMI, nl lids, nl sclera, PERRL ENMT: nl external ears & nose, nl lips & teeth, nl nasal mucosa & septum Neck: supple, non-tender Respiratory: crackles/rales, wheezing Cardiovascular: regular rate and rhythm, nl pulses; No bruits, No diastolic murmur, No edema, No gallop, No irregular rhythm, No jugular venous distention (JVD), No murmurs/extra sounds, No rub, No systolic murmur, No S3, No S4, No other Gastrointestinal: soft, nl liver, spleen, non-tender Musculoskeletal: nl extremities to inspection Extremities: normal pulses; No calf tenderness, No cyanosis, No clubbing, No edema, No pitting pedal edema, No palpable cord, No tenderness, No other Neurological: HUMAN RESOURCES CLERK II-XII intact, nl mental status, nl speech, nl strength Medications Medications Current Medications Guaifenesin (Robitussin Liquid Cup) 200 mg Q4H PRN PO COUGH Last administered on 03/07/18at 00:08; Admin Dose 200 MG; Start 03/07/18 at 00:00 Tamsulosin HCl (Flomax) 0.8 mg HS PO Last administered on 03/07/18at 20:29; Admin Dose 0.8 MG; Start 03/07/18 at 21:00 Tacrolimus (Prograf) 2 mg Q12 PO Last administered on 03/08/18at 10:14; Admin Dose 2 MG; Start 03/07/18 at 00:30 IV Flush (NS 3 ml) 3 ml PER PROTOCOL IV ; Start 03/07/18 at 00:30 Ondansetron HCl (Zofran Inj) 4 mg Q6H PRN IV NAUSEA AND/OR VOMITING; Start 03/07/18 at 00:30 Acetaminophen (Tylenol Tab) 650 mg Q6H PRN PO PAIN LEVEL 1-3 OR FEVER Last administered on 03/07/18at 02:31; Admin Dose 650 MG; Start 03/07/18 at 00:30 Acetaminophen/ Hydrocodone Bitart ([place] (5/325)) 1 tab Q6H PRN PO PAIN LEVEL 4-6 Last administered on 03/07/18at 07:25; Admin Dose 1 TAB; Start 03/07/18 at 00:30 Allopurinol (Zyloprim) 100 mg DAILY PO Last administered on 03/08/18 09:59; Admin Dose 100 MG; Start 03/07/18 at 09:00 Aspirin (Halfprin) 81 mg DAILY PO Last administered on 03/08/18at 09:59; Admin Dose 81 MG; Start 03/07/18 at 09:00 Carvedilol (Coreg) 25 mg BID PO Last administered on 03/08/18at 10:00; Admin Dose 25 MG; Start 03/07/18 at 09:00 Clopidogrel Bisulfate (plaVIX) 75 mg DAILY PO Last administered on 03/08/18 09:59; Admin Dose 75 MG; Start 03/07/18 at 09:00 Diltiazem HCl (Cardizem Cd) 300 mg DAILY PO Last administered on 03/08/18 10:23; Admin Dose 300 MG; Start 03/07/18 at 09:00 Prednisone (Prednisone) 5 mg DAILY PO Last administered on 03/08/18at 09:59; Admin Dose 5 MG; Start 03/07/18 at 09:00 Diagnostic Test (Pha) (Accu-Chek) 1 ea 02 XX ; Start 03/07/18 at 02:00 Insulin Aspart (Novolog Insulin Pen) NOVOLOG *MILD* ALGORITHM WITH MEALS BEDTIME SC Last administered on 03/07/18at 20:44; Admin Dose 1 UNIT; Start 02/19 09/06 at 07:55 Miscellaneous Information 1 ea NOTE XX ; Start 03/07/18 at 00:30 Glucose (Glutose) 15 gm Q15M PRN PO DECREASED GLUCOSE; Start 03/07/18 at 00:30 Glucose (Glutose) 22.5 gm Q15M PRN PO DECREASED GLUCOSE; Start 03/07/18 at 00:30 Dextrose (D50w Syringe) 25 ml Q15M PRN IV DECREASED GLUCOSE; Start 03/07/18 at 00:30 Dextrose (D50w Syringe) 50 ml Q15M PRN IV DECREASED GLUCOSE; Start 03/07/18 at 00:30 Glucagon (Glucagen) 1 mg Q15M PRN IM DECREASED GLUCOSE; Start 03/07/18 at 00:30 Glucose (Glutose) 15 gm Q15M PRN BUCCAL DECREASED GLUCOSE; Start 03/07/18 at 00:30 Phenol (Cepastat Lozenge) 1 lozenge Q1H PRN MT throat pain Last administered on 03/07/18at 19:38; Admin Dose 1 LOZENGE; Start 03/07/18 at 07:00 Atorvastatin Calcium (Lipitor) 10 mg DAILY@21 PO Last administered on 03/07/18at 20:30; Admin Dose 10 MG; Start 03/07/18 at 21:00 Fenofibrate (Tricor) 145 mg DAILY PO Last administered on 03/08/18at 09:59; Admin Dose 145 MG; Start 03/07/18 at 11:00 Mycophenolate Mofetil (Cellcept) 500 mg QAM PO Last administered on 03/08/18at 10:23; Admin Dose 500 MG; Start 03/07/18 at 11:30 Ceftriaxone Sodium 50 ml @ 100 mls/hr Q24H IVPB Last administered on 03/07/18at 17:02; Admin Dose 100 MLS/HR; Start 03/07/18 at 17:00 Azithromycin 250 ml @ 250 mls/hr Q24H IVPB Last administered on 03/07/18at 17:41; Admin Dose 250 MLS/HR; Start 03/07/18 at 17:30 Magnesium Sulfate 100 ml @ 25 mls/hr ONCE ONCE IVPB ; Start 03/08/18 at 16:00; Stop 03/08/18 at 19:59 PADMINI SR MD Mar 08, 2018 14:49
[2018-03-08] MEDS ORDERED: MAGNESIUM SULFATE 4 GM/100 ML 100 ML IVPB ONE (16:00)
[2018-03-08] MEDS: CEFTRIAXONE 1 GM/50 ML (PMX) 50 ML IVPB SCH (16:24)
[2018-03-08] MEDS: AZITHROMYCIN 500MG/NS (PMX) 250 ML IVPB SCH (17:11)
[2018-03-08] MEDS: ACETAMINOPHEN 325 MG TAB PO PRN (17:51)
[2018-03-08 19:10] VITALS: BP 134/80; PULSE 70; RESP 18
[2018-03-08] MEDS: TAMSULOSIN (SR) 0.4 MG CAP PO SCH (20:19)
[2018-03-08] MEDS: ATORVASTATIN 10 MG TAB PO SCH (20:21)
[2018-03-09 02:30] VITALS: BP 141/70; PULSE 63; RESP 18
[2018-03-09 07:29] VITALS: BP 127/70; PULSE 70; RESP 15
[2018-03-09] MEDS: INSULIN ASPART [NOVOLOG] 3 ML PEN SC SCH ×4 (07:50→20:28)
[2018-03-09] MEDS: TACROLIMUS 1 MG CAP PO SCH (08:45)
[2018-03-09] MEDS: FENOFIBRATE 145 MG TAB PO SCH (08:45)
[2018-03-09] MEDS: CLOPIDOGREL 75 MG TAB PO SCH (08:45)
[2018-03-09] MEDS: predniSONE 5 MG TAB PO SCH (08:45)
[2018-03-09] MEDS: ALLOPURINOL 100 MG TAB PO SCH (08:45)
[2018-03-09] MEDS: ASPIRIN (EC) 81 MG TAB PO SCH (08:45)
[2018-03-09] MEDS: DILTIAZEM (CD) 300 MG CAP PO SCH (08:46)
[2018-03-09] MEDS ORDERED: CEFPODOXIME 200 MG TAB PO SCH (10:00)
[2018-03-09] MEDS ORDERED: ALBUTEROL/IPRATROPIUM (NEB) 3 ML AMP HHN PRN (10:00)
--- NOTE | 2018-03-09 11:54 | PN ---
Date/Time of Note Date/Time of Note DATE: 03/09/18 TIME: 11:53 Objective Vitals Vital Signs Date Temp Pulse Resp B/P (MAP) Pulse Ox O2 O2 Flow FiO2 Time Delivery Rate 03/09/18 98.5 70 15 127/70 100 Room Air 07:29 (89) 03/06/18 2.0 19:13 Intake and Output 03/08/18 03/08/18 03/09/18 1414:59 22:59 06:59 IntakeIntake Total 400 ml 820 ml OutputOutput Total 250 ml 800 ml 450 ml BalanceBalance 150 ml 20 ml -450 ml Results Result Diagram: 03/09/1843403/09/18 043 Medications Medications Current Medications Guaifenesin (Robitussin Liquid Cup) 200 mg Q4H PRN PO COUGH Last administered on 03/07/18at 00:08; Admin Dose 200 MG; Start 03/07/18 at 00:00 Tamsulosin HCl (Flomax) 0.8 mg HS PO Last administered on 03/08/18at 20:19; Admin Dose 0.8 MG; Start 03/07/18 at 21:00 Tacrolimus (Prograf) 2 mg Q12 PO Last administered on 03/09/18at 08:45; Admin Dose 2 MG; Start 03/07/18 at 00:30 IV Flush (NS 3 ml) 3 ml PER PROTOCOL IV ; Start 03/07/18 at 00:30 Ondansetron HCl (Zofran Inj) 4 mg Q6H PRN IV NAUSEA AND/OR VOMITING Last administered on 03/08/18at 17:50; Admin Dose 4 MG; Start 03/07/18 at 00:30 Acetaminophen (Tylenol Tab) 650 mg Q6H PRN PO PAIN LEVEL 1-3 OR FEVER Last administered on 03/08/18at 17:51; Admin Dose 650 MG; Start 03/07/18 at 00:30 Acetaminophen/ Hydrocodone Bitart ([place] (5/325)) 1 tab Q6H PRN PO PAIN LEVEL 4-6 Last administered on 03/07/18at 07:25; Admin Dose 1 TAB; Start 03/07/18 at 00:30 Allopurinol (Zyloprim) 100 mg DAILY PO Last administered on 03/09/18at 08:45; Admin Dose 100 MG; Start 03/07/18 at 09:00 Aspirin (Halfprin) 81 mg DAILY PO Last administered on 03/09/18at 08:45; Admin Dose 81 MG; Start 03/07/18 at 09:00 Carvedilol (Coreg) 25 mg BID PO Last administered on 03/09/18at 08:46; Admin Dose 25 MG; Start 03/07/18 at 09:00 Clopidogrel Bisulfate (plaVIX) 75 mg DAILY PO Last administered on 03/09/18at 08:45; Admin Dose 75 MG; Start 03/07/18 at 09:00 Diltiazem HCl (Cardizem Cd) 300 mg DAILY PO Last administered on 03/09/18at 08:46; Admin Dose 300 MG; Start 03/07/18 at 09:00 Prednisone (Prednisone) 5 mg DAILY PO Last administered on 03/09/18at 08:45; Admin Dose 5 MG; Start 03/07/18 at 09:00 Diagnostic Test (Pha) (Accu-Chek) 1 ea 02 XX ; Start 03/07/18 at 02:00 Insulin Aspart (Novolog Insulin Pen) NOVOLOG *MILD* ALGORITHM WITH MEALS BEDTIME SC Last administered on 03/08/18at 18:05; Admin Dose 2 UNIT; Start 03/07/18 at 07:55 Miscellaneous Information 1 ea NOTE XX ; Start 03/07/18 at 00:30 Glucose (Glutose) 15 gm Q15M PRN PO DECREASED GLUCOSE; Start 03/07/18 at 00:30 Glucose (Glutose) 22.5 gm Q15M PRN PO DECREASED GLUCOSE; Start 03/07/18 at 00:30 Dextrose (D50w Syringe) 25 ml Q15M PRN IV DECREASED GLUCOSE; Start 03/07/18 at 00:30 Dextrose (D50w Syringe) 50 ml Q15M PRN IV DECREASED GLUCOSE; Start 03/07/18 at 00:30 Glucagon (Glucagen) 1 mg Q15M PRN IM DECREASED GLUCOSE; Start 03/07/18 at 00:30 Glucose (Glutose) 15 gm Q15M PRN BUCCAL DECREASED GLUCOSE; Start 03/07/18 at 00:30 Phenol (Cepastat Lozenge) 1 lozenge Q1H PRN MT throat pain Last administered on 03/07/18at 19:38; Admin Dose 1 LOZENGE; Start 03/07/18 at 07:00 Atorvastatin Calcium (Lipitor) 10 mg DAILY@21 PO Last administered on 03/08/18at 20:21; Admin Dose 10 MG; Start 03/07/18 at 21:00 Fenofibrate (Tricor) 145 mg DAILY PO Last administered on 03/09/18at 08:45; Admin Dose 145 MG; Start 03/07/18 at 11:00 Albuterol/ Ipratropium (Duoneb) 3 ml Q6HWA RESP THERAPY HHN ; Start 03/09/18 at 14:00 Albuterol/ Ipratropium (Duoneb) 3 ml Q2H RESP THERAPY PRN HHN shortness of breath; Start 03/09/18 at 10:00 Azithromycin (Zithromax) 500 mg DAILY@1800 PO ; Start 03/09/18 at 18:00 Cefpodoxime Proxetil (Vantin) 200 mg BID PO ; Start 03/09/18 at 10:00 VTE Prophylaxis Risk score (from Ns)>0 risk: 1 [place] [facility] [place]/Catheters IV Catheter Type: Shipman in Place: No Assessment/Plan Hospital Course Subjective Patient doing much better, shortness of breath has significantly improved Objective Physical exam General: Patient is laying in bed and answers questions appropriately Mentation: Patient is alert and oriented 4, Head: Normocephalic atraumatic Eyes: EOMI, pupils reactive to light Neck: Supple, nontender, midline Respiratory: Mild wheezing to auscultation bilaterally Cardiovascular: regular rate, no obvious murmurs Gastrointestinal: non-tender to palpation, bowel sounds heard. Neurological: Moves all extremities spontaneously Skin: No new skin lesions Assessment and plan Shortness of breath likely secondary to acute bronchitis -Transitioning IV antibiotic to oral today -Continue with duo nebs -Patient doing well however due to immunocompromised status, will monitor 1 more day in the inpatient setting History of kidney transplant -On CellCept at home, DC'd for now per nephrology Leukopenia -CellCept has been discontinued per nephrology due to worrisome low white count -It has been recommended by product introduction manager that patient follow-up with his outpatient product introduction manager as well as a field support technician in order to determine if he ca n continue CellCept at a reasonable rate -We will need to the speak with product introduction manager before discharge to determine if patient will go home with no CellCept versus a lower dose Chronic kidney disease -Nephrology on board Hypertension -Continue home meds Dyslipidemia -Continue home meds BPH -Continue home meds Questionable diabetes mellitus -Insulin sliding scale as needed Disposition -Due to patient's immune compromised status, will observe for 1 more day, transition IV antibiotic to oral antibiotic and if stable can DC tomorrow. DIA LI Mar 09, 2018 11:54
[2018-03-09] MEDS ORDERED: CEFUROXIME 250 MG TAB PO SCH (13:00)
--- NOTE | 2018-03-09 13:43 | CONS ---
Date/Time of Note Date/Time of Note DATE: 03/09/18 TIME: 13:40 Assessment/Plan Assessment/Plan Assessment/Plan 1. 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 His renal function is improved today.per pt baseline cr 3 to 3.5/ cellcept held due to persstent leucopenia. on prednsione and prograf. level pending. monitor labs 2. Leukopenia. worse. hold cellcept and monitor 3. Viral illness, not influenza.improved 4. Anemia: improved 5. Hypertension: controlled 6. Hyperlipidemia: on meds and stable 7. Coronary artery disease: no recent cp Result Diagram: 03/09/18 0435 03/09/18 0435 Results 24hrs Laboratory Tests Test 03/08/18 17:54 03/08/18 20:18 03/09/18 04:35 03/09/18 08:38 Bedside Glucose 200 166 134 White Blood Count 1.9 #L Red Blood Count 4.30 L Hemoglobin 12.3 L Hematocrit 38.2 L Mean Corpuscular 88.8 Volume Mean Corpuscular 28.6 L Hemoglobin Mean Corpuscular 32.2 Hemoglobin Concent Red Cell 12.9 Distribution Width Platelet Count 181 Mean Platelet Volume 9.1 Immature 0.500 H Granulocytes % Neutrophils % Segmented 22 L Neutrophils % (Manual) Band Neutrophils % 2 (Manual) Lymphocytes % Lymphocytes % 57 H (Manual) Reactive Lymphocytes 12 H % (Manual) Monocytes % Monocytes % (Manual) 7 Eosinophils % Basophils % Nucleated Red Blood 0.0 Cells % Immature 0.010 Granulocytes # Neutrophils # Neutrophils # 0.4 L (Manual) Band Neutrophils # 0.0 Lymphocytes (Manual) 1.0 Lymphocytes # Reactive Lymphocytes 0.2 H # Monocytes # Monocytes # (Manual) 0.1 L Eosinophils # Basophils # Nucleated Red Blood Cells # Platelet Estimate NORMAL Giant Platelets 2 H Poikilocytosis 1+ Anisocytosis 1+ Sodium Level 140 Potassium Level 3.8 Chloride Level 108 Carbon Dioxide Level 24 Anion Gap 8 Blood Urea Nitrogen 26 H Creatinine 3.20 H Est Glomerular 25 L Filtrat Rate mL/min Glucose Level 117 Calcium Level 9.5 Magnesium Level 2.5 # Test 03/09/18 12:30 Bedside Glucose 174 Consultation Date/Type/Reason Admit Date/Time Mar 06, 2018 at 18:44 Initial Consult Date 24 HR Interval Summary Free Text/Dictation feels well. states feels much better. no fever Exam/Review of Systems Vital Signs Vitals Vital Signs Date Temp Pulse Resp B/P (MAP) Pulse Ox O2 O2 Flow FiO2 Time Delivery Rate 03/09/18 98.5 70 15 127/70 100 Room Air 07:29 (89) 03/06/18 2.0 19:13 Intake and Output 03/08/18 03/08/18 03/09/18 1515:00 23:00 07:00 IntakeIntake Total 400 ml 820 ml OutputOutput Total 250 ml 800 ml 450 ml BalanceBalance 150 ml 20 ml -450 ml Exam Constitutional: alert, oriented, well developed Psych: no complaints Head: normocephalic Eyes: nl conjunctiva Neck: supple, non-tender, jvd Respiratory: clear to auscultation, diminished breath sounds Cardiovascular: regular rate and rhythm, edema Gastrointestinal: soft Medications Medications Current Medications Guaifenesin (Robitussin Liquid Cup) 200 mg Q4H PRN PO COUGH Last administered on 03/07/18at 00:08; Admin Dose 200 MG; Start 03/07/18 at 00:00 Tamsulosin HCl (Flomax) 0.8 mg HS PO Last administered on 03/08/18at 20:19; Admin Dose 0.8 MG; Start 03/07/18 at 21:00 Tacrolimus (Prograf) 2 mg Q12 PO Last administered on 03/09/18at 08:45; Admin Dose 2 MG; Start 03/07/18 at 00:30 IV Flush (NS 3 ml) 3 ml PER PROTOCOL IV ; Start 03/07/18 at 00:30 Ondansetron HCl (Zofran Inj) 4 mg Q6H PRN IV NAUSEA AND/OR VOMITING Last administered on 03/08/18at 17:50; Admin Dose 4 MG; Start 03/07/18 at 00:30 Acetaminophen (Tylenol Tab) 650 mg Q6H PRN PO PAIN LEVEL 1-3 OR FEVER Last administered on 03/08/18at 17:51; Admin Dose 650 MG; Start 03/07/18 at 00:30 Acetaminophen/ Hydrocodone Bitart ([place] (5/325)) 1 tab Q6H PRN PO PAIN LEVEL 4-6 Last administered on 03/07/18at 07:25; Admin Dose 1 TAB; Start 03/07/18 at 00:30 Allopurinol (Zyloprim) 100 mg DAILY PO Last administered on 03/09/18at 08:45; Admin Dose 100 MG; Start 03/07/18 at 09:00 Aspirin (Halfprin) 81 mg DAILY PO Last administered on 03/09/18at 08:45; Admin Dose 81 MG; Start 03/07/18 at 09:00 Carvedilol (Coreg) 25 mg BID PO Last administered on 03/09/18 08:46; Admin Dose 25 MG; Start 03/07/18 at 09:00 Clopidogrel Bisulfate (plaVIX) 75 mg DAILY PO Last administered on 03/09/18at 08:45; Admin Dose 75 MG; Start 03/07/18 at 09:00 Diltiazem HCl (Cardizem Cd) 300 mg DAILY PO Last administered on 03/09/18 08:46; Admin Dose 300 MG; Start 03/07/18 at 09:00 Prednisone (Prednisone) 5 mg DAILY PO Last administered on 03/09/18at 08:45; Admin Dose 5 MG; Start 03/07/18 at 09:00 Diagnostic Test (Pha) (Accu-Chek) 1 ea 02 XX ; Start 03/07/18 at 02:00 Insulin Aspart (Novolog Insulin Pen) NOVOLOG *MILD* ALGORITHM WITH MEALS BEDTIME SC Last administered on 03/09/18at 12:38; Admin Dose 1 UNIT; Start 03/07/18 at 07:55 Miscellaneous Information 1 ea NOTE XX ; Start 03/07/18 at 00:30 Glucose (Glutose) 15 gm Q15M PRN PO DECREASED GLUCOSE; Start 03/07/18 at 00:30 Glucose (Glutose) 22.5 gm Q15M PRN PO DECREASED GLUCOSE; Start 03/07/18 at 00:30 Dextrose (D50w Syringe) 25 ml Q15M PRN IV DECREASED GLUCOSE; Start 03/07/18 at 00:30 Dextrose (D50w Syringe) 50 ml Q15M PRN IV DECREASED GLUCOSE; Start 03/07/18 at 00:30 Glucagon (Glucagen) 1 mg Q15M PRN IM DECREASED GLUCOSE; Start 03/07/18 at 00:30 Glucose (Glutose) 15 gm Q15M PRN BUCCAL DECREASED GLUCOSE; Start 03/07/18 at 00:30 Phenol (Cepastat Lozenge) 1 lozenge Q1H PRN MT throat pain Last administered on 03/07/18at 19:38; Admin Dose 1 LOZENGE; Start 03/07/18 at 07:00 Atorvastatin Calcium (Lipitor) 10 mg DAILY@21 PO Last administered on 03/08/18at 20:21; Admin Dose 10 MG; Start 03/07/18 at 21:00 Fenofibrate (Tricor) 145 mg DAILY PO Last administered on 03/09/18at 08:45; Admin Dose 145 MG; Start 03/07/18 at 11:00 Albuterol/ Ipratropium (Duoneb) 3 ml Q6HWA RESP THERAPY HHN ; Start 03/09/18 at 14:00 Albuterol/ Ipratropium (Duoneb) 3 ml Q2H RESP THERAPY PRN HHN shortness of breath; Start 03/09/18 at 10:00 Azithromycin (Zithromax) 500 mg DAILY@1800 PO ; Start 03/09/18 at 18:00 Cefuroxime Axetil (Ceftin) 500 mg DAILY PO ; Start 03/09/18 at 14:00 JESS GRAMAJO MD Mar 09, 2018 13:43
[2018-03-09 14:34] VITALS: BP 126/70; PULSE 65; RESP 14
[2018-03-09] MEDS: ALBUTEROL/IPRATROPIUM (NEB) 3 ML AMP HHN SCH ×2 (14:52→19:45)
[2018-03-09] MEDS: CEFUROXIME 250 MG TAB PO SCH (15:55)
[2018-03-09] MEDS ORDERED: AZITHROMYCIN 250 MG TAB PO SCH (18:00)
[2018-03-09 20:00] VITALS: BP 118/62; PULSE 65; RESP 18
[2018-03-09] MEDS: ATORVASTATIN 10 MG TAB PO SCH (20:24)
[2018-03-09] MEDS: TAMSULOSIN (SR) 0.4 MG CAP PO SCH (20:24)
[2018-03-09] MEDS ORDERED: TACROLIMUS 1 MG CAP PO SCH (21:00)
[2018-03-10 02:00] VITALS: BP 138/70; PULSE 61; RESP 18
[2018-03-10] MEDS: ACCU-CHEK XX SCH (02:00)
[2018-03-10 08:28] VITALS: BP 154/88; PULSE 72; RESP 16
[2018-03-10] MEDS: ALLOPURINOL 100 MG TAB PO SCH (08:47)
[2018-03-10] MEDS: predniSONE 5 MG TAB PO SCH (08:47)
[2018-03-10] MEDS: CLOPIDOGREL 75 MG TAB PO SCH (08:47)
[2018-03-10] MEDS: CEFUROXIME 250 MG TAB PO SCH (08:47)
[2018-03-10] MEDS: ASPIRIN (EC) 81 MG TAB PO SCH (08:48)
[2018-03-10] MEDS: DILTIAZEM (CD) 300 MG CAP PO SCH (08:48)
[2018-03-10] MEDS: INSULIN ASPART [NOVOLOG] 3 ML PEN SC SCH ×2 (08:52→12:52)
[2018-03-10] MEDS ORDERED: TACROLIMUS 1 MG CAP PO SCH (09:00)
[2018-03-10] MEDS: ALBUTEROL/IPRATROPIUM (NEB) 3 ML AMP HHN SCH ×2 (09:06→14:00)
[2018-03-10] MEDS ORDERED: LEVO500T48 PO (13:35)
--- NOTE | 2018-03-10 13:36 | PDOCDIS ---
Discharge Instructions DIAGNOSIS Discharge Diagnosis Pneumonia CONDITION [id number] Patient Condition: [id number] Stable FOLLOW UP/APPOINTMENTS Follow-up Plan Take your antibiotics as prescribed Stop taking cellcept for the next 7 days until you see your kidney doctor and your blood work is checked RIK BERNAL MD Mar 10, 2018 13:36
--- NOTE | 2018-03-10 14:58 | DS ---
Date/Time of Note Date/Time of Note DATE: 03/10/18 TIME: 14:57 Discharge Summary Admission/Discharge Info Admit Date/Time Mar 06, 2018 at 18:44 Discharge Date/Time Discharge Diagnosis Pneumonia Patient Condition: Stable Hospital Course Presented with sepsis and clinical symptoms of pneumonia. He was given broad spectrum antitbiotics and symptoms improved. Cultures were negative. He was given a course of levaquin to complete as an outpatinet. HD was continued. He was advised to hold cellcept for 1 week until he sees his coater slate in clinic Home Meds Active Scripts Levofloxacin* (Levaquin*) 500 Mg Tablet, 500 MG PO Q48H for 4 Days, #3 TAB Prov:RIK BERNAL MD 03/10/18 Reported Medications Tamsulosin Hcl* (Tamsulosin Hcl*) 0.4 Mg Cap.er.24h, 0.8 MG PO HS, CAP 03/06/18 Pravastatin Sodium* (Pravastatin Sodium*) 40 Mg Tablet, 40 MG PO HS, TAB 03/06/18 Fenofibrate, Micronized (Fenofibrate) 134 Mg Capsule, 134 MG PO DAILY, CAP 03/06/18 Carvedilol* (Carvedilol*) 25 Mg Tablet, 25 MG PO BID, #60 TAB 03/06/18 Diltiazem Hcl* (Cartia XT*) 300 Mg Cap.sr.24h, 300 MG PO DAILY, #30 CAP 03/06/18 Prednisone* (Prednisone*) 5 Mg Tab, 5 MG PO DAILY, TAB 03/06/18 Allopurinol* (Allopurinol*) 100 Mg Tablet, 100 MG PO DAILY, TAB 03/06/18 Glipizide* (Glipizide ER*) 2.5 Mg Tab.er.24, 5 MG PO DAILY, TAB 03/06/18 Tacrolimus* (Tacrolimus*) 1 Mg Capsule, 2 MG PO Q12, CAP 03/06/18 Aspirin* (Aspirin* EC) 81 Mg Tablet.dr, 81 MG PO DAILY, TAB 03/06/18 Clopidogrel Bisulfate* (Clopidogrel Bisulfate*) 75 Mg Tablet, 75 MG PO DAILY, #30 TAB 03/06/18 Discontinued Reported Medications Ibuprofen* (Ibuprofen*) 800 Mg Tab, 800 MG PO Q6H PRN for PAIN, TAB 03/06/18 Mycophenolate Mofetil* (Cellcept*) 250 Mg Capsule, 250 MG PO BID, CAP TAKE 2TAB-QAM AND 1TAB-QPM 03/06/18 Zolpidem Tartrate* (Ambien*) 10 Mg Tablet, 10 MG PO HS PRN for INSOMNIA, TAB 01/01/14 Hydrocodone Bit-Acetaminophen* ([place]*) 10-325 Mg Tablet, 1 TAB PO Q6 PRN for PAIN, TAB 01/01/14 Prednisone (Prednisone) 10 Mg Tab, 5 MG PO DAILY, TAB 01/01/14 Glipizide* (Glipizide ER*) 5 Mg/Bottle Tab.osm.24, 5 MG PO DAILY, TAB 01/01/14 Aspirin/Calcium Carbonate/Mag (Aspirin Buffered) 325 Mg Tablet, 325 MG PO DAILY, TAB 01/01/14 Calcitriol* (Rocaltrol*) 0.25 Mcg Capsule, 0.25 MCG PO MWF, CAP 01/01/14 Benazepril Hcl* (Benazepril Hcl*) 10 Mg Tablet, 10 MG PO DAILY, TAB 01/01/14 Tamsulosin Hcl* (Flomax*) 0.4 Mg Cap.er.24h, 0.8 MG PO HS, CAP 01/01/14 Tacrolimus* (Prograf*) 1 Mg Capsule, 3 MG PO Q12, CAP 01/01/14 Carvedilol* (Coreg*) 12.5 Mg Tablet, 12.5 MG PO BID, TAB 01/01/14 [Calcuim] No Conflict Check, 500 BID 01/01/14 Diltiazem Hcl (DILTIAZEM 24HR ER) 120 Mg Cap.er.24h, 300 MG PO DAILY 01/01/14 Simvastatin* (Zocor*) 20 Mg Tablet, 20 MG PO HS, TAB 01/01/14 [Nexuim] No Conflict Check, 40 DAILY 01/01/14 Mycophenolate Mofetil* (Cellcept*) 500 Mg Tablet, 500 MG PO BID, TAB 01/01/14 Follow-up Plan Take your antibiotics as prescribed Stop taking cellcept for the next 7 days until you see your kidney doctor and your blood work is checked Primary Care Provider Not On Staff Doctor Pending Labs Laboratory Tests Test 03/09/18 18:01 03/09/18 20:23 03/10/18 02:00 03/10/18 04:38 Bedside 231 196 122 Glucose mg/dL (70-220) mg/dL (70-220) mg/dL (70-220) Phosphorus 4.1 Level mg/dl (2.5-4.9 ) Magnesium 2.0 Level mg/dl (1.7-2.5 ) Test 03/10/18 04:42 03/10/18 08:41 03/10/18 12:48 White Blood 2.5 Count 10^3/ul (4.8-10 .8) Red Blood 4.08 Count 10^6/ul (4.70-6 .10) Hemoglobin 11.9 g/dl (14.0-18.0 ) Hematocrit 36.5 % (42.0-52.0) Mean 89.5 Corpuscular fl (82.0-101.0) Volume Mean 29.2 Corpuscular pg (29.0-33.0) Hemoglobin Mean 32.6 Corpuscular g/dl (32.0-37.0 Hemoglobin Conc ) ent Red Cell 12.9 Distribution % (11.5-14.5) Width Platelet Count 189 10^3/UL (140-41 5) Mean Platelet 9.0 Volume fl (7.4-10.4) Immature 0.400 Granulocytes % % (0.001-0.429) Neutrophils % 32.0 % (39.0-77.0) Segmented 36 % (39-77) Neutrophils % (Manual) Band 3 % (0-4) Neutrophils % (Manual) Lymphocytes % 55.7 % (15.0-51.0) Lymphocytes % 45 % (15-51) (Manual) Reactive 1 % (0-0) Lymphocytes % (Manual) Monocytes % 10.3 % (0.0-11.0) Monocytes % 9 % (0-11) (Manual) Eosinophils % 1.2 % (0.0-7.0) Eosinophils % 4 % (0-7) (Manual) Basophils % 0.4 % (0.0-2.0) Basophils % 1 % (0-2) (Manual) Metamyelocytes 1 % (0-0) % (manual) Nucleated Red 0.0 Blood Cells % /100WBC (0.0-0. 0) Immature 0.010 Granulocytes # 10^3/ul (0.0-0. 031) Neutrophils # 0.8 10^3/ul (1.6-7. 5) Neutrophils # 0.9 (Manual) 10^3/ul (1.6-7. 5) Band 0.0 Neutrophils # 10^3/ul (0.0-0. 6) Lymphocytes 1.1 (Manual) 10^3/ul (0.8-2. 9) Lymphocytes # 1.4 10^3/ul (0.8-2. 9) Reactive 0.0 Lymphocytes # 10^3/ul (0.0-0. 0) Monocytes # 0.3 10^3/ul (0.3-0. 9) Monocytes # 0.2 (Manual) 10^3/ul (0.3-0. 9) Eosinophils # 0.0 10^3/ul (0.0-0. 5) Basophils # 0.0 10^3/ul (0.0-0. 1) Basophils # 0.0 (Manual) 10^3/ul (0.0-0. 0) Metamyelocytes 0.0 # 10^3/ul (0.0-0. 0) Nucleated Red 0.0 Blood Cells # 10^3/ul (0.0-0. 0) Platelet NORMAL Estimate Giant Platelets 3 % (0-0) Polychromasia 3+ (0-0) Poikilocytosis 1+ (0-0) Anisocytosis 3+ (0-0) Macrocytosis 3+ (0-0) Sodium Level 140 mmol/L (135-144 ) Potassium 4.0 Level mmol/L (3.5-5.1 ) Chloride Level 110 mmol/L (97-110) Carbon Dioxide 23 Level mmol/L (21-31) Anion Gap 7 (5-13) Blood Urea 31 mg/dl (7-20) Nitrogen Creatinine 3.73 mg/dl (0.61-1.2 4) Est Glomerular 21 mL/min (>60) Filtrat Rate mL/min Glucose Level 115 mg/dl (70-220) Calcium Level 9.2 mg/dl (8.4-10.2 ) Total 0.2 Bilirubin mg/dl (0.2-1.3) Direct 0.00 Bilirubin mg/dl (0.00-0.2 0) Indirect 0.2 Bilirubin mg/dl (0-1.1) Aspartate Amino 19 IU/L (15-46) Transf (AST/SGO T) Alanine 16 IU/L (13-69) Aminotransferas e (ALT/SGPT) Alkaline 32 Phosphatase IU/L (42-121) Total Protein 6.4 g/dl (6.1-8.1) Albumin 3.5 g/dl (3.3-4.9) Globulin 2.90 g/dl (1.3-3.2) Albumin/Globuli 1.20 n Ratio Bedside 213 185 Glucose mg/dL (70-220) mg/dL (70-220) RIK BERNAL MD Mar 10, 2018 14:58
--- NOTE | 2018-03-10 18:58 | CONS ---
Date/Time of Note Date/Time of Note DATE: 03/10/18 TIME: 18:56 Assessment/Plan Assessment/Plan Assessment/Plan 1. 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 per pt baseline cr 3 to 3.5/ mildly elevated today at 3.7.cellcept held due to persstent leucopenia and wbc better on prednsione and prograf. level slightly low and dose increased to 2mg in am and 3 mg pm. pt aaware of chnage and will continue holding cellcept and will fu with outpatient nepho next week for labs 2. Leukopenia. better off cellcept 3. Viral illness, not influenza.improved 4. Anemia: improved 5. Hypertension: controlled 6. Hyperlipidemia: on meds and stable 7. Coronary artery disease: no recent cp Result Diagram: 03/10/1844103/10/18441 Results 24hrs Laboratory Tests Test 03/09/18 20:23 03/10/18 02:00 03/10/18 04:38 03/10/18 04:42 Bedside Glucose 196 122 Phosphorus Level 4.1 Magnesium Level 2.0 White Blood Count 2.5 #L Red Blood Count 4.08 L Hemoglobin 11.9 L Hematocrit 36.5 L Mean Corpuscular 89.5 Volume Mean Corpuscular 29.2 Hemoglobin Mean Corpuscular 32.6 Hemoglobin Concent Red Cell 12.9 Distribution Width Platelet Count 189 Mean Platelet Volume 9.0 Immature 0.400 Granulocytes % Neutrophils % 32.0 L Segmented 36 L Neutrophils % (Manual) Band Neutrophils % 3 (Manual) Lymphocytes % 55.7 H Lymphocytes % 45 (Manual) Reactive Lymphocytes 1 H % (Manual) Monocytes % 10.3 Monocytes % (Manual) 9 Eosinophils % 1.2 Eosinophils % 4 (Manual) Basophils % 0.4 Basophils % (Manual) 1 Metamyelocytes % 1 H (manual) Nucleated Red Blood 0.0 Cells % Immature 0.010 Granulocytes # Neutrophils # 0.8 L Neutrophils # 0.9 L (Manual) Band Neutrophils # 0.0 Lymphocytes (Manual) 1.1 Lymphocytes # 1.4 Reactive Lymphocytes 0.0 # Monocytes # 0.3 Monocytes # (Manual) 0.2 L Eosinophils # 0.0 Basophils # 0.0 Basophils # (Manual) 0.0 Metamyelocytes # 0.0 Nucleated Red Blood 0.0 Cells # Platelet Estimate NORMAL Giant Platelets 3 H Polychromasia 3+ Poikilocytosis 1+ Anisocytosis 3+ Macrocytosis 3+ Sodium Level 140 Potassium Level 4.0 Chloride Level 110 Carbon Dioxide Level 23 Anion Gap 7 Blood Urea Nitrogen 31 H Creatinine 3.73 H Est Glomerular 21 L Filtrat Rate mL/min Glucose Level 115 Calcium Level 9.2 Total Bilirubin 0.2 Direct Bilirubin 0.00 Indirect Bilirubin 0.2 Aspartate Amino 19 Transf (AST/SGOT) Alanine 16 Aminotransferase (AL T/SGPT) Alkaline Phosphatase 32 L Total Protein 6.4 Albumin 3.5 Globulin 2.90 Albumin/Globulin 1.20 Ratio Test 03/10/18 08:41 03/10/18 12:48 Bedside Glucose 213 185 Consultation Date/Type/Reason Admit Date/Time Mar 06, 2018 at 18:44 Initial Consult Date 24 HR Interval Summary Free Text/Dictation feels well. no issues Exam/Review of Systems Vital Signs Vitals Vital Signs Date Temp Pulse Resp B/P (MAP) Pulse Ox O2 O2 Flow FiO2 Time Delivery Rate 03/10/18 67 18 96 21 09:06 03/10/18 98.5 154/88 08:28 (110) 03/09/18 Room Air 14:34 03/06/18 2.0 19:13 Intake and Output 03/09/18 03/09/18 03/10/18 1515:00 23:00 07:00 IntakeIntake Total 650 ml 800 ml BalanceBalance 650 ml 800 ml Exam Constitutional: alert, oriented, well developed Psych: no complaints Head: normocephalic Eyes: nl conjunctiva Neck: supple, non-tender Respiratory: clear to auscultation Cardiovascular: regular rate and rhythm, edema JESS GRAMAJO MD Mar 10, 2018 18:58
== END 2018-03-10 15:30 | disposition home or self-care (01) | DRG 871 ==
LOC: E/R 16:31 → TEL 18:44 → MS1 03-08 05:50
PROVIDERS: ADMIT Internal Medicine; ATTEND Internal Medicine
DX: A41.9 Sepsis, unspecified organism (principal); J18.9 Pneumonia, unspecified organism; Z94.0 Kidney transplant status; I13.0 Hypertensive heart and chronic kidney disease with heart failure and stage 1 through stage 4 chronic kidney disease, or unspecified chronic kidney disease; D70.2 Other drug-induced agranulocytosis; E11.22 Type 2 diabetes mellitus with diabetic chronic kidney disease; I50.9 Heart failure, unspecified; I48.91 Unspecified atrial fibrillation; J20.9 Acute bronchitis, unspecified; N18.9 Chronic kidney disease, unspecified; F17.210 Nicotine dependence, cigarettes, uncomplicated; I25.10 Atherosclerotic heart disease of native coronary artery without angina pectoris; F10.21 Alcohol dependence, in remission; F32.9 Major depressive disorder, single episode, unspecified; E78.5 Hyperlipidemia, unspecified; N40.0 Benign prostatic hyperplasia without lower urinary tract symptoms; D64.9 Anemia, unspecified; T45.1X5A Adverse effect of antineoplastic and immunosuppressive drugs, initial encounter; Y92.89 Other specified places as the place of occurrence of the external cause; Z79.4 Long term (current) use of insulin; Z79.82 Long term (current) use of aspirin
CPT/HCPCS: 36415; 71045; 76775; 80048; 80053; 80061; 80197; 81001; 82962; 83036; 83605; 83735; 84100; 84484; 85025; 85610; 85730; 87040; 87086; 87400; 90686; 93005; 94640; 94664; 96374; 96375; J0456; J0692; J0696; J1815; J2270; J2405; J3370; J3475; J7030; J7507; J7512; J7517